=== PATIENT | female | born 1940 | race Caucasian/White ===

== ENCOUNTER 2018-04-26 10:01 | Day surgery (SDC) | payer MEDICARE ==
[~2018-04-26 10:01] MED LIST: Acetaminophen TAB* 325 MG PO PRN; Buffered Lidocaine 0.9% SYRIN* 5 ML/SYR SYRINGE INTRADERM ONE
[2018-04-26] MEDS ORDERED: Midazolam* 1 MG/ML 2 ML VIAL (2 MG) ONE ×2 (12:03→12:26)
[2018-04-26] MEDS ORDERED: fentaNYL* 50 MCG/ML 2 ML VIAL (100 MCG VIAL) ONE (12:03)
[2018-04-26 12:48] VITALS: BP 125/53
[2018-04-26] MEDS ORDERED: Neomycin/Polymy/Dex OPHTH.OIN* 3.5 GM ONE (14:12)
[2018-04-26] MEDS ORDERED: Tropicamide 1% OPTH.SOL* BTL ONE (14:12)
[2018-04-26] MEDS ORDERED: Ketorolac 0.5% OPHTH (NF) 0.5 % 5 ML BTL ONE (14:12)
[2018-04-26] MEDS ORDERED: Tetracaine 0.5% OPTH.SOL 4 ML* 1 DROP BTL ONE (14:12)
[2018-04-26] MEDS ORDERED: Cyclopentolate 1% OPTH.SOL* 2 ML BTL ONE (14:12)
[2018-04-26] MEDS ORDERED: Lidocaine 1%* 5 ML VIAL ONE (14:12)
[2018-04-26] MEDS ORDERED: Phenylephrine 2.5% OPTH.SOL* 2 ML BTL ONE (14:12)
--- NOTE | 2018-04-27 09:12 | OP ---
DATE OF OPERATION: 04/26/18 [facility] DATE OF : 44 SURGEON: Dr. Chai Barboza. BUSINESS INTEGRATION ANALYST: None. ANESTHESIA: Topical with intravenous sedation. PRE-OP DIAGNOSIS: Cataract, right eye. POST-OP DIAGNOSIS: Cataract, right eye. OPERATIVE PROCEDURE: Phacoemulsification and cataract extraction with posterior chamber intraocular lens implant, right eye. COMPLICATIONS: None. BLOOD LOSS: None. DESCRIPTION OF PROCEDURE: The patient was brought to the operating room and received a small amount of intra-venous sedation. A drop of tetracaine was placed in her right eye. She was prepped and draped in the usual sterile fashion for ophthalmic surgery and attention was directed to the right eye where a speculum was placed. A paracentesis was created at the 11 o'clock position and 0.1 cc of 1 percent preservative-free Lidocaine was injected into the anterior chamber followed by DisCoVisc. The eye was digitally stabilized while a 2.75 mm keratome was used to create a triplanar clear corneal incision at the 9 o'clock position. A continuous curvilinear capsulorrhexis was created with a cystotome and Utrata forceps. BSS on a cannula was used to hydrodissect the lens from the capsule. Phacoemulsification was performed in a divide-and- conquer technique to create four fragments which were removed. Residual cortical material was removed with irrigation and aspiration. DisCoVisc was used to inflate the capsular bag and an AU00T0 21.0 diopter lens was folded and inserted into the capsular bag. DisCoVisc was removed using irrigation and aspiration. BSS on a cannula was used to hydrate the corneal stroma and seal the wound. At the end of the case the pupil was round and the lens was centered. The eye was of normal pressure and the wound was water tight. The speculum was removed and topical Maxitrol ointment was placed on the surface of the eye. The eye was closed, patched and shielded and the patient was sent to the recovery room in stable condition with post operative instructions and follow-up appointment given. [id number]/CPS #: [id number] TARSHA
== END 2018-04-26 13:00 | disposition home or self-care (01) ==
LOC: OREAST 10:01
PROVIDERS: ATTEND Ophthalmology
DX: H25.11 Age-related nuclear cataract, right eye (principal); I10 Essential (primary) hypertension; E78.5 Hyperlipidemia, unspecified; N30.11 Interstitial cystitis (chronic) with hematuria
CPT/HCPCS: A9270-GY; J2250; J3010; V2632

== ENCOUNTER 2018-11-06 10:22 | Emergency (ER) | payer MEDICARE ==
[2018-11-06 10:59] VITALS: BP 121/63
--- NOTE | 2018-11-06 12:15 | UC ---
Complaint Female HPI - HPI Summary HPI Summary: 78 yo female presents with urinary frequency and burning since this morning. She took a pyridium and her symptoms have improved. She tells me that she has chronic UTIs and is followed by Urology. She is scheduled to undergo a procedure in a few weeks to help resolve her frequent UTIs. Her last UTI was about a week ago at Dr. Hines's office and was treated with keflex for 5 days - she states that her symptoms did resolve, but have returned this morning. Denies hematuria, abdominal pain, n/v, flank pain - History Of Current Complaint Chief Complaint: UCGU Stated Complaint: URINARY ISSUE Time Seen by Provider: 11/06/18 12:15 Hx Obtained From: Patient Onset/Duration: Sudden Onset Timing: Constant Severity Initially: Mild Severity Currently: Mild Pain Intensity: 2 Pain Scale Used: 0-10 Numeric - Allergies/Home Medications Allergies/Adverse Reactions: Allergies Allergy/AdvReac Type Severity Reaction Status Date / Time Sulfa (Sulfonamide Allergy EXCESSIVE Verified 11/06/18 10:59 Antibiotics) BLEEDIN G- A CHILD Home Medications: Home Medications Oxybutynin TAB* [Ditropan TAB*] 10 mg PO DAILY 11/06/18 [History Confirmed 11/06] amLODIPine TAB* [Norvasc 5 mg TAB*] 1 tab PO DAILY 11/06/18 [History Confirmed 11/06/18] PMH/Surg Hx/FS Hx/Imm Hx - Additional Past Medical History Additional PMH: Chronic UTIs Cardiovascular History: Hypertension - Surgical History Surgical History: Yes Surgery Procedure, Year, and Place: TUBAL LIGATION . RIGHT HAMMER TOE AND BUNNION REPAIR 2001. APPENDECTOMY as a child, age 10. right total hip, 2014, [facility] [place]. left cataract, 2015, [facility] [place]. d/c - Family History Known Family History: Positive: Unknown - Social History Lives: With Family Alcohol Use: Weekly Alcohol Amount: 1 per week Substance Use Type: None Smoking Status (MU): Former Smoker Amount Used/How Often: 2 years, pack a week Have You Smoked in the Last Year: No When Did the Patient Quit Smoking/Using Tobacco: - Immunization History Most Recent Influenza Vaccination: FALL 2013 Most Recent Tetanus Shot: 2009 Most Recent Pneumonia Vaccination: 2011 Review of Systems All Other Systems Reviewed And Are Negative: Yes Constitutional: Positive: Negative Skin: Positive: Negative Respiratory: Positive: Negative Cardiovascular: Positive: Negative Genitourinary: Positive: Dysuria, Frequency Neurological: Positive: Negative Psychological: Positive: Negative Physical Exam - Summary Physical Exam Summary: GENERAL: NAD. WDWN. No pain distress. SKIN: No rashes, sores, lesions, or open wounds. NECK: Supple. Nontender. No lymphadenopathy. CHEST: CTAB. No r/r/w. No accessory muscle use. Breathing comfortably and in no distress. CV: RRR. Without m/r/g. Pulses intact. Cap refill <2seconds ABDOMEN: Soft. NTTP. No distention or guarding. No CVA tenderness. Bowel sounds present NEURO: Alert. PSYCH: Age appropriate behavior. Triage Information Reviewed: Yes Vital Signs: Initial Vital Signs Temp 97.9 F 11/06/18 10:56 Pulse 61 11/06/18 10:56 Resp 16 11/06/18 10:56 BP 121/63 11/06/18 10:56 Pulse Ox 100 11/06/18 10:56 Laboratory Tests 11/06/18 12:30 POC Urine Color Yellow POC Urine Clarity Clear POC Urine pH 7.0 POC Ur Specif [place] 1.010 POC Urine Protein Negative POC Ur Glucose (UA) Negative POC Urine Ketones Negative POC Urine Blood Negative POC Urine Nitrite Positive A POC Urine Bilirubin Negative POC Urine Urobilinogen 1.0 POC U Leukocyte Esteras 1+ A Vital Signs Reviewed: Yes Complaint Female Dx - Course Course Of Treatment: Last urine culture grew e. coli that was sens to keflex. Given her recent anbx use, will start her with augmentin for this UTI which was sens on last urine culture. UA from today will be sent for culture as well and she will f/u with Dr. Hines - Differential Dx/Diagnosis Provider Diagnosis: UTI (urinary tract infection) Discharge - Sign-Out/Discharge Documenting (check all that apply): Patient Departure All imaging exams completed and their final reports reviewed: No Studies - Discharge Plan Condition: Stable Disposition: HOME Prescriptions: Amoxicillin/Clavulanate TAB* [Augmentin TAB 500 mg*] 500 mg PO BID #10 tab Patient Education Materials: Urinary Tract Infection in Women (ED) Referrals: Mary Schaefer MD [Primary Care Provider] - Additional Instructions: If you develop a fever, shortness of breath, chest pain, new or worsening symptoms - please call your PCP or go to the ED immediately. Please follow up with Dr. Rojas as scheduled - Billing Disposition and Condition Condition: STABLE Disposition: Home - Attestation Statements Provider Attestation: I was available for consult. This patient was seen by the RAQU[facility]. The patient was not presented to, seen by, or examined by me. -Rickey
== END 2018-11-06 12:40 | disposition home or self-care (01) ==
LOC: UCEAST 10:22
DX: N39.0 Urinary tract infection, site not specified (principal); I10 Essential (primary) hypertension; Z88.2 Allergy status to sulfonamides; Z79.899 Other long term (current) drug therapy; Z87.891 Personal history of nicotine dependence
CPT/HCPCS: 81003; 87077; 87086; 87186; 99212; G0463

== ENCOUNTER 2021-07-01 07:30 | Inpatient (IN) ==
[~2021-07-01 07:30] MED LIST changes: -Acetaminophen TAB* 325 MG PO PRN; -Buffered Lidocaine 0.9% SYRIN* 5 ML/SYR SYRINGE INTRADERM ONE; +Buffered Lidocaine 1% SYRIN 1 ml INTRADERM ONE; +Lactated Ringers 1000 ml BAG 1,000 ML IV SCH
[2021-07-01] MEDS ORDERED: Propofol 10 MG/ML 20 ML BTL ONE ×2 (09:41→12:30)
[2021-07-01] MEDS ORDERED: Ondansetron 4 mg VIAL 2 MG/ML 2 ml VIAL ONE (09:41)
[2021-07-01] MEDS ORDERED: Dexamethasone IV 4 MG/ML VIAL 1 ml VIAL ONE (09:41)
[2021-07-01] MEDS ORDERED: Lidocaine 2% PF 5 ML VIAL ONE (09:41)
[2021-07-01] MEDS ORDERED: Midazolam 2 mg/2 ml VIAL 1 mg/ml 2 ml VIAL (2 mg) ONE ×2 (09:41→11:11)
[2021-07-01] MEDS ORDERED: Bupivacaine 0.5% SDV PF 30ML VIAL ONE (09:41)
[2021-07-01] MEDS ORDERED: fentaNYL 100 mcg/2 ml 50 MCG/ML VIAL ONE (09:41)
[2021-07-01] MEDS ORDERED: Ropivacaine 5 MG/ML 20 ML VIAL 0.5% (100 MG) ONE (10:35)
[2021-07-01] MEDS ORDERED: ROPIVACAINE 5 MG/ML 30 ML BTL (0.5%) ONE (10:36)
[2021-07-01] MEDS ORDERED: diPHENhydraMINE IV 50 MG/ML 1 ml VIAL (BENADRYL) IV PRN ×2 (11:54→12:08)
[2021-07-01] MEDS ORDERED: Prochlorperazine 5 mg/ml 2 ml VIAL (10 mg) IV PRN (11:54)
[2021-07-01] MEDS ORDERED: Naloxone 0.4 mg VIAL 0.4 mg/ml 1 ml VIAL IV PRN (11:54)
[2021-07-01] MEDS ORDERED: Ondansetron ODT 4 mg TAB 4 MG TAB PO PRN (12:08)
[2021-07-01] MEDS ORDERED: Morphine 2 MG/ML SYRINGE IV PRN (12:08)
[2021-07-01] MEDS ORDERED: Magnesium Hydroxide LIQ 30 ML UDC PO PRN (12:08)
[2021-07-01] MEDS ORDERED: Lactulose 30 ml UDC PO PRN (12:08)
[2021-07-01] MEDS ORDERED: diPHENhydraMINE 25 mg TAB PO PRN (12:08)
[2021-07-01] MEDS ORDERED: Ondansetron 4 mg VIAL 2 MG/ML 2 ml VIAL IV PRN (12:08)
[2021-07-01] MEDS ORDERED: Lactated Ringers 1000 ml BAG 1,000 ML IV SCH (13:00)
[2021-07-01] MEDS: ceFAZolin 1 GM ADVAN 1 GM in NS 0.9% 50 ML 50 ML IVPB SCH (18:35)
[2021-07-01] MEDS: Magnesium Hydroxide LIQ 30 ML UDC PO SCH (20:53)
[2021-07-02] MEDS: ceFAZolin 1 GM ADVAN 1 GM in NS 0.9% 50 ML 50 ML IVPB SCH ×2 (03:52→10:13)
[2021-07-02 06:57] LABS: Hematocrit 33 % (35-47); Hemoglobin 11.4 g/dL (12.0-16.0); Mean Platelet Volume 7.9 fL (7.4-10.4); Platelet Count 250 10^3/uL (150-450)
[2021-07-02 07:12] LABS: Calcium 8.6 mg/dL (8.6-10.3); eGFR CKD-EPI 71.7 (>60)
[2021-07-02] MEDS: Magnesium Hydroxide LIQ 30 ML UDC PO SCH (08:20)
[2021-07-02] MEDS ORDERED: Vitamin THERAPEUTIC TAB PO SCH (09:00)
[2021-07-02 11:09] VITALS: BP 113/53
== END 2021-07-02 13:40 | disposition home or self-care (01) | DRG 470 ==
LOC: AA 09:03 → SSU 16:10
PROVIDERS: ADMIT Orthopaedic Surgery Adult Reconstructive Orthopaedic Surgery; ATTEND Orthopaedic Surgery Adult Reconstructive Orthopaedic Surgery